=== PATIENT | female | born 1975 | race American Indian/Alaskan Native ===

== ENCOUNTER 2018-09-01 17:48 | Emergency (ER) | payer SELFPAY ==
--- NOTE | 2018-09-01 18:03 | Emergency Department Report ---
Blank Doc - Documentation Documentation: 43 y o female presents to Ed cc of left ear pain, throbbing, aching x 3 days 6/10 intensity, no foreign object. ACC eval
--- NOTE | 2018-09-01 19:36 | Emergency Department Report ---
ED General Adult HPI - General Chief complaint: Earache Stated complaint: BODY PAIN/COUGH/EAR ACHE Time Seen by Provider: 09/01/18 17:58 Source: patient Mode of arrival: Ambulatory Limitations: No Limitations - History of Present Illness Initial comments: Patient is a 43-year-old -[place] female with no past medical history who presents to the ER with complaint of acute onset persistent severe painful swollen erythematous maculopapular nonfluctuant rash on left temporal area and face for the last 3 days. Patient states that the pain radiates to the left temporal area and the left ear, and that in the last 24 hours she has hardly slept because of severe pain. Patient denies fever, chills, nausea, vomiting, dizziness, headache, chest pain, shortness of breath, hearing loss or sore throat. MD Complaint: left temporal swollen erythematosu rash -: Sudden, days(s) (3) Location: face (left temporal area) Radiation: non-radiation Severity scale (0 -10): 7 Quality: aching, sharp Consistency: constant Improves with: none Worsens with: none Associated Symptoms: denies other symptoms, headaches, rash. denies: chest pain, cough, fever/chills, loss of appetite, malaise, nausea/vomiting Treatments Prior to Arrival: none - Related Data Previous Rx's Medication Instructions Recorded Last Taken Type Ibuprofen [Motrin] 800 mg PO Q8HR PRN #24 tablet 09/01/18 Unknown Rx Sulfamethoxazole/Trimethoprim 1 each PO Q12H #20 tablet 09/01/18 Unknown Rx [Bactrim DS TAB] Allergies Allergy/AdvReac Type Severity Reaction Status Date / Time No Known Allergies Allergy Unverified 09/01/18 17:49 ED Review of Systems ROS: Stated complaint: BODY PAIN/COUGH/EAR ACHE Other details as noted in HPI Comment: All other systems reviewed and negative Constitutional: no symptoms reported, see HPI. denies: chills, diaphoresis, fever, malaise Eyes: as per HPI. denies: eye pain, eye discharge ENT: as per HPI, ear pain. denies: throat pain, dental pain, hearing loss, epistaxis, congestion Respiratory: no symptoms reported, see HPI, cough. denies: orthopnea, shortness of breath, SOB with exertion, SOB at rest Cardiovascular: as per HPI. denies: chest pain, palpitations, edema, syncope Endocrine: no symptoms reported, see HPI Gastrointestinal: as per HPI. denies: abdominal pain, nausea, vomiting, diarrhea Genitourinary: as per HPI. denies: urgency, dysuria, frequency Musculoskeletal: as per HPI. denies: back pain, joint swelling, arthralgia Skin: as per HPI, rash (erythematous swollen mildly erythematous nonfluctuant rash), change in color (mildly erythematous rash on left temporal area) Neurological: as per HPI, headache Psychiatric: as per HPI Hematological/Lymphatic: as per HPI ED Past Medical Hx - Past Medical History Previous Medical History?: No - Surgical History Past Surgical History?: Yes Additional Surgical History: - Social History Smoking Status: Current Every Day Smoker Substance Use Type: Alcohol, Other - Medications Home Medications: Home Medications Medication Instructions Recorded Confirmed Last Taken Type Ibuprofen [Motrin] 800 mg PO Q8HR PRN #24 tablet 09/01/18 Unknown Rx Sulfamethoxazole/Trimethoprim 1 each PO Q12H #20 tablet 09/01/18 Unknown Rx [Bactrim DS TAB] ED Physical Exam - General Limitations: No Limitations General appearance: alert, in no apparent distress - Head Head exam: Present: normocephalic, other (erythematous moderately tender, cody thematous rash on left temporal scalp) - Eye Eye exam: Present: normal appearance, PERRL, EOMI - ENT ENT exam: Present: normal exam, normal orophraynx, mucous membranes moist, TM's normal bilaterally - Neck Neck exam: Present: normal inspection, full ROM. Absent: tenderness, mening ismus, lymphadenopathy, thyromegaly - Respiratory Respiratory exam: Present: normal lung sounds bilaterally. Absent: rales, rhonchi, chest wall tenderness - Cardiovascular Cardiovascular Exam: Present: regular rate, normal rhythm, normal heart sounds - GI/Abdominal GI/Abdominal exam: Present: soft. Absent: distended, tenderness, guarding, hyperactive bowel sounds, hypoactive bowel sounds - Rectal Rectal exam: Present: deferred - Extremities Exam Extremities exam: Present: normal inspection - Back Exam Back exam: Present: normal inspection, full ROM - Neurological Exam Neurological exam: Present: alert, oriented X3, CN II-XII intact, normal gait, reflexes normal - Skin Skin exam: Present: warm, dry, intact, rash (erythematous swollen maculoapular nonfluctuiant rash on left temporal area), erythema ED Course Vital Signs 09/01/18 17:58 Temperature 98.1 F Pulse Rate 74 Respiratory 18 Rate Blood Pressure 132/77 O2 Sat by Pulse 99 Oximetry ED Medical Decision Making - Medical Decision Making Patient is alert and oriented 3 and is not in distress with normal vital signs. Patient was discharged home on antibiotics and pain medications and advised to follow-up with her primary care physician in 7-10 days for reevaluation, or return to the ED immediately if symptoms get worse. Patient's symptoms are due to an acute folliculitis on the left temporal area characterized by maculopapular rash with tenderness - Differential Diagnosis acute folliculitis, cellulitis of left temporal scalp, cutaneous abscess Critical care attestation.: If time is entered above; I have spent that time in minutes in the direct care of this critically ill patient, excluding procedure time. ED Disposition Clinical Impression: Acute folliculitis, Cellulitis and abscess of face Disposition: TO HOME OR SELFCARE Is pt being admited?: No Does the pt Need Aspirin: No Condition: Stable Instructions: Cellulitis (ED), Folliculitis (ED) Additional Instructions: Take medications with food, drink plenty of fluids and follow up with your primary care physician in 7-10 days for reevaluation. Return to the ED i mmediately if symptoms get worse. Prescriptions: Sulfamethoxazole/Trimethoprim [Bactrim DS TAB] 1 each PO Q12H #20 tablet Ibuprofen [Motrin] 800 mg PO Q8HR PRN #24 tablet PRN Reason: Pain , Severe (7-10) Referrals: PRIMARY CARE, [Primary Care Provider] - 3-5 Days [facility] [Outside] - 3-5 Days Time of Disposition: 19:44 Print Language: PASHTO
[2018-09-01 20:10] VITALS: BP 131/80
== END 2018-09-01 20:05 | disposition home or self-care (01) ==
LOC: ED 17:48
DX: L73.9 Follicular disorder, unspecified (principal); L03.211 Cellulitis of face; F17.200 Nicotine dependence, unspecified, uncomplicated